=== PATIENT | female | born 1950 | race Two or more races ===

== ENCOUNTER → 2024-10-27 | Outpatient (CLI) | payer MEDICARE, BC, SELFPAY ==
--- NOTE | 2024-10-27 14:00 | XR_ITS ---
Examination: Breast ultrasound, unilateral, left Date and time of exam: October 27, 2024 1421 hours INDICATIONS: Mammogram August 22, 2024 8 mm oval mass 3:00 position left breast Technique: Real-time morin scale ultrasonographic imaging performed left breast including all 4 quadrants as well as nipple retroareolar and axillary region. Findings: No cystic or solid mass IMPRESSION: BI-RADS Category 1: Negative study
--- NOTE | 2024-10-27 14:30 | XR_ITS ---
Examination: Diagnostic digital mammography, unilateral, left Computer aided detection 3-D breast Tomosynthesis, unilateral Date and time of exam: October 27, 2024 1431 hours INDICATIONS: Mammogram August 22, 2024 8 mm oval mass 3:00 position left breast Technique: Nonmagnified MLO, CC views of the left breast have been obtained, reconstructed from 3-D Tomosynthesis images. R2 computer aided detection program utilized for evaluation of suspicious masses and/or abnormal calcifications. 3-D Tomosynthesis images obtained. Findings: Scattered areas of fibroglandular density 8mm oval mass does persist 3:00 position left breast Impression: BI-RADS category 3: Probably benign findings One additional 6 month left mammogram follow-up is needed to document stability of 8:00 oval mass 2:00 position left breast
== END | disposition home or self-care (01) ==
PROVIDERS: PCP Family Medicine; Referring Provider Family Medicine; Visit Provider Family Medicine
DX: R92.332 Mammographic heterogeneous density, left breast (principal); N63.24 Unspecified lump in the left breast, lower inner quadrant; N63.21 Unspecified lump in the left breast, upper outer quadrant
CPT/HCPCS: 76641; 77061; 77065; G0279

== ENCOUNTER → 2024-12-29 | Outpatient (CLI) | payer MEDICARE, BC, SELFPAY ==
[2024-12-29 09:02] LABS: Albumin, Serum 4.3 gm/dL (3.4-4.8); Anion Gap 3 (7-16); BUN/Creatinine Ratio 23 Ratio (12-20); Blood Urea Nitrogen 18 mg/dL (9-23); Calcium 9.9 mg/dL (8.3-10.6); Calcium (Corrected) 9.9 mg/dL (8.5-10.1); Carbon Dioxide 28.8 mMol/L (20.0-31.0); Chloride 108 mMol/L (98-107); Creatinine (Component) 0.8 mg/dL (0.6-1.3); Glucose 99 mg/dL (74-106); Osmolality,Calculated 281 (275-295); Phosphorous 3.4 mg/dL (2.4-5.1); Potassium 4.1 mMol/L (3.4-5.1); Sodium 140 mMol/L (136-145); eGFR > 60 See Note
== END | disposition home or self-care (01) ==
LOC: COPL 07:15
PROVIDERS: PCP Family Medicine; Visit Provider Family Medicine
DX: E03.9 Hypothyroidism, unspecified (principal); E78.5 Hyperlipidemia, unspecified; K59.00 Constipation, unspecified; L28.2 Other prurigo; Z11.59 Encounter for screening for other viral diseases
CPT/HCPCS: 36415; 80069

== ENCOUNTER → 2025-01-14 | Outpatient (CLI) | payer MEDICARE, BC, SELFPAY ==
--- NOTE | 2025-01-14 15:00 | XR_ITS ---
Examination: CT abdomen, without intravenous contrast. CT abdomen, with intravenous contrast. Sagittal and coronal 2-D reconstructions. Time of exam:January 14, 2025 1530 hours INDICATIONS: Right flank pain right upper abdomen lump noticed beginning 2 months ago below the 12th rib CTDI: vol (mGy) 11.8 DLP: (mGycm) 328 Technique: Multiple 3.0 mm axial noncontrast images of the abdomen have been obtained. Multiple 3.0 mm axial images post administration 60 cc Isovue-370 intravenous contrast have been obtained. Sagittal and coronal 3-D reconstructions have been obtained. Low dose protocols were performed. One or more of the following dose reduction techniques were used; automated exposure control, adjustment of the mA and/or KV according to patient size, use of iterative reconstruction technique. Findings: No focal liver or splenic lesions Absent gallbladder No extra hepatic biliary tract dilatation No pancreatic or adrenal mass Mild to moderate bilateral renal parenchymal scar formation Right extrarenal pelvis No renal or ureteral calculi, no hydronephrosis IMPRESSION: No renal or ureteral calculi, no hydronephrosis Recommend ultrasound follow-up of any palpable lump in the right abdomen
== END | disposition home or self-care (01) ==
LOC: CCTX 14:49
PROVIDERS: PCP Family Medicine; Referring Provider Family Medicine; Visit Provider Family Medicine
DX: R19.09 Other intra-abdominal and pelvic swelling, mass and lump (principal)
CPT/HCPCS: 74170; A4649; Q9967

== ENCOUNTER 2025-04-20 09:00 | Outpatient (RCR) | payer MEDICARE, OTHER, SELFPAY ==
--- NOTE | 2025-03-31 09:12 | PT.OIERPT ---
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 Pt still has pain (6/10) with activities. Pt has limitation with self care, cooking, cleaning, gripping, overhead motions, and performing recreational activities. Objective: Right Shoulder PROM Flexion: 100 deg Abduction: 90 deg External Rotation: 80 deg Internal Rotation: NT due to pain Right Shoulder AROM Flexion: neutral Abduction: 20 deg ER and IR: unable Right Shoulder MMTs: grossly 2-/5 Right Scapula MMTs: grossly 2-/5 Assessment: Pt demonstrate right shoulder mobility and strength deficits s/p surgery leading to difficulty with ADLs. Pt will benefit from physical therapy to increase ROM, strength, and work on stability Short Term and Yarn Mercerizer Operator Helper Goals 1) Increase right shoulder PROM all motions WFL in 12 wks to prevent frozen shoulder 2) Increase right shoulder AROM WFL in 12 wks to be able to perform overhead motions 3) Increase right shoulder MMTs grossly to 4-/5 in 12 wks to be able to perform recreational activities 4) Increase right scapula MMTs grossly to 3+/5 in 12 wks to be able to perform lifting activities 5) Indep with HEP Treatment Plan 1) Manual Therapy 2) Therapeutic Activities 3) Therapeutic Exercises 4) Modalities (ice, heat) Frequency and Duration: 2 x wk for 12 wks Certification Dates: 03/31/25 to 07/01/25 Procedure Charges OP PT Eval Mod Complex 30 minutes: Yes
--- NOTE | 2025-04-06 10:37 | PT.ODAYNRPT ---
PT Outpatient Daily Note OP Daily Note Outpatient Physical Therapy Treatment Date: 04/06/25 Visit Reasons: Right shoulder pain Subjective: Pt's shoulder feels better. Pt mentioned she's been having her shoulder out of the sling more at home. Objective: Please see flow chart for list of ther ex performed Assessment: patient tolerate all exercises. Pt demonstrate progressive AAROM and PROM with less pain reported. Post ice helped with pain and soreness Plan: Continue with PT Length of Time (minutes) of Treatment: 30 Minutes Procedure Charges Therapeutic Exercise 30 minutes: Yes
--- NOTE | 2025-04-08 10:44 | PT.ODAYNRPT ---
PT Outpatient Daily Note OP Daily Note Outpatient Physical Therapy Treatment Date: 04/08/25 Visit Reasons: Right shoulder pain Subjective: Pt reports R shoulder is sore and stiff. Objective: Please see flow sheet for ther ex list. Assessment: Intervention completed with rest break in between exercises de to poor endurance and minimal pain. Plan: Continue with poC. Length of Time (minutes) of Treatment: 30 Minutes COAT FELLER Service Modifier Method I: Divide the number of min of care provided by the COAT FELLER/REGISTERED PHLEBOTOMIST PART TIME by the total min of care provided then multiply by 100. If greater than 11 percent modifier is required. Method II: Divide the total time of care provided to patient by 10 (round to the nearest whole number) and add 1 min. to set the minimum time requirement. If treatment total was 60 min., then 10% of 6 min PT CQ modifier applied: CQ Modifier applied Procedure Charges Therapeutic Exercise 30 minutes: Yes
--- NOTE | 2025-04-13 14:20 | PT.ODAYNRPT ---
PT Outpatient Daily Note OP Daily Note Outpatient Physical Therapy Treatment Date: 04/13/25 Visit Reasons: Right shoulder pain Subjective: Pt reports R shoulder is doing ok, continues to wear sling as directed. Objective: Please see flow sheet for ther ex list. Assessment: Continued with light AAROM interventions, pt tolerated well. Plan: Continue with POC. Length of Time (minutes) of Treatment: 30 Minutes ART GLASS SETTER Service Modifier Method I: Divide the number of min of care provided by the ART GLASS SETTER/CLINIC CMA by the total min of care provided then multiply by 100. If greater than 11 percent modifier is required. Method II: Divide the total time of care provided to patient by 10 (round to the nearest whole number) and add 1 min. to set the minimum time requirement. If treatment total was 60 min., then 10% of 6 min PT CQ modifier applied: CQ Modifier applied Procedure Charges Therapeutic Exercise 30 minutes: Yes
--- NOTE | 2025-04-20 10:20 | PT.ODAYNRPT ---
PT Outpatient Daily Note OP Daily Note Outpatient Physical Therapy Treatment Date: 04/20/25 Visit Reasons: Right shoulder pain Subjective: Pt reports shoulder is doing ok, feels like she can move it a little better. Pt continues to use sling to sleep. Objective: Please see flow sheet for ther ex list. Assessment: Continued with AAROm interventions, minimal discomfort. Plan: Continue with pOC. Length of Time (minutes) of Treatment: 30 Minutes Procedure Charges Therapeutic Exercise 30 minutes: Yes
== END 2025-04-20 23:59 | disposition home or self-care (01) ==
LOC: CPTX 09:00
PROVIDERS: PCP Orthopaedic Surgery; Referring Provider Orthopaedic Surgery; Visit Provider Orthopaedic Surgery
DX: M25.511 Pain in right shoulder (principal); M19.011 Primary osteoarthritis, right shoulder; Z96.611 Presence of right artificial shoulder joint
CPT/HCPCS: 97110; 97162

== ENCOUNTER 2025-05-19 09:30 | Outpatient (RCR) | payer MEDICARE, OTHER, SELFPAY ==
--- NOTE | 2025-04-28 10:21 | PT.ODAYNRPT ---
PT Outpatient Daily Note OP Daily Note Outpatient Physical Therapy Treatment Date: 04/28/25 Visit Reasons: RT shoulder pain Subjective: Pt reports shoulder is doing ok, does not feel mobility is coming back like she would like. Objective: Please see flow sheet for ther ex list. Assessment: Pt demonstrates poor RTC firing during isometrics. Plan: Continue with pOC. Length of Time (minutes) of Treatment: 30 Minutes Procedure Charges Therapeutic Exercise 30 minutes: Yes
--- NOTE | 2025-05-05 09:43 | PT.ODAYNRPT ---
PT Outpatient Daily Note OP Daily Note Outpatient Physical Therapy Treatment Date: 05/05/25 Visit Reasons: RT shoulder pain Subjective: Pt c/o weak shoulder and frustrated she can not lift. Objective: Please see flow sheet for ther ex list. Assessment: Pt demonstrates poor RTC firing, poor AROM in all directions. Focus on restoring strength to maximize rehab potential and AROM. Plan: Continue with poC. Length of Time (minutes) of Treatment: 30 Minutes DISTANCE LEARNING ADMINISTRATOR Service Modifier Method I: Divide the number of min of care provided by the DISTANCE LEARNING ADMINISTRATOR/JAE by the total min of care provided then multiply by 100. If greater than 11 percent modifier is required. Method II: Divide the total time of care provided to patient by 10 (round to the nearest whole number) and add 1 min. to set the minimum time requirement. If treatment total was 60 min., then 10% of 6 min PT CQ modifier applied: CQ Modifier applied Procedure Charges Therapeutic Exercise 30 minutes: Yes
--- NOTE | 2025-05-07 10:05 | PT.ODAYNRPT ---
PT Outpatient Daily Note OP Daily Note Outpatient Physical Therapy Treatment Date: 05/07/25 Visit Reasons: RT shoulder pain Subjective: Pt reports compliance with HEP. Objective: Please see flow sheet for ther ex list. Assessment: Focus on restoring strength and ROm, progressing per post op protocol. Plan: Continue iwth pOC. Length of Time (minutes) of Treatment: 30 Minutes LOCK AND DAM REPAIRER Service Modifier Method I: Divide the number of min of care provided by the LOCK AND DAM REPAIRER/PEDIATRIC RADIOLOGIST by the total min of care provided then multiply by 100. If greater than 11 percent modifier is required. Method II: Divide the total time of care provided to patient by 10 (round to the nearest whole number) and add 1 min. to set the minimum time requirement. If treatment total was 60 min., then 10% of 6 min PT CQ modifier applied: CQ Modifier applied Procedure Charges Therapeutic Exercise 30 minutes: Yes
--- NOTE | 2025-05-14 10:23 | PT.ODAYNRPT ---
PT Outpatient Daily Note OP Daily Note Outpatient Physical Therapy Treatment Date: 05/14/25 Visit Reasons: RT shoulder pain Subjective: Pt reports R shoulder is weak and she is getting discouraged because at this time pt can not reach or lift arm. Objective: Please see flow sheet for ther ex list. Assessment: Pt demonstrates poor cuff firing and compensates with excessive upper trap recruitment and lateral trunk flexion to reach during exercises. Plan: Continue with pOC. Length of Time (minutes) of Treatment: 30 Minutes INFORMATION SYSTEMS PLANNER Service Modifier Method I: Divide the number of min of care provided by the INFORMATION SYSTEMS PLANNER/JAE by the total min of care provided then multiply by 100. If greater than 11 percent modifier is required. Method II: Divide the total time of care provided to patient by 10 (round to the nearest whole number) and add 1 min. to set the minimum time requirement. If treatment total was 60 min., then 10% of 6 min PT CQ modifier applied: CQ Modifier applied Procedure Charges Therapeutic Exercise 30 minutes: Yes
--- NOTE | 2025-05-19 10:06 | PTNOTE_ITS ---
PT Outpatient Daily Note OP Daily Note Outpatient Physical Therapy Treatment Date: 05/19/25 Visit Reasons: RT shoulder pain Subjective: Pt reports shoulder is slow to progress, continues to perform HEP. Objective: Please see flow sheet for ther ex list. Assessment: Continued focus on initiating strengthening, pt demonstrates less upper trap recruitment today during cone stack exercise. Plan: Continue with POC. Length of Time (minutes) of Treatment: 30 Minutes BACK UP MACHINE OPERATOR Service Modifier Method I: Divide the number of min of care provided by the BACK UP MACHINE OPERATOR/JAE by the total min of care provided then multiply by 100. If greater than 11 percent modifier is required. Method II: Divide the total time of care provided to patient by 10 (round to the nearest whole number) and add 1 min. to set the minimum time requirement. If t reatment total was 60 min., then 10% of 6 min PT CQ modifier applied: CQ Modifier applied Procedure Charges Therapeutic Exercise 30 minutes: Yes
== END 2025-05-21 23:59 | disposition home or self-care (01) ==
LOC: CPTX 09:30
PROVIDERS: PCP Orthopaedic Surgery; Referring Provider Orthopaedic Surgery; Visit Provider Orthopaedic Surgery
DX: M25.511 Pain in right shoulder (principal); Z96.611 Presence of right artificial shoulder joint; M19.011 Primary osteoarthritis, right shoulder
CPT/HCPCS: 97110

== ENCOUNTER 2025-06-17 09:00 | Outpatient (RCR) | payer MEDICARE, OTHER, SELFPAY ==
--- NOTE | 2025-05-26 10:17 | PT.ODAYNRPT ---
PT Outpatient Daily Note OP Daily Note Outpatient Physical Therapy Treatment Date: 05/26/25 Visit Reasons: right shoulder pain Subjective: Pt reports R shoulder is slow to progress. Objective: Please see flow sheer for ther ex list. Assessment: Pt able to perform active shoulder flexion in supine with some difficulty. Plan: Continue with poC> Length of Time (minutes) of Treatment: 30 Minutes COMMERCIAL CARPENTER Service Modifier Method I: Divide the number of min of care provided by the COMMERCIAL CARPENTER/JAE by the total min of care provided then multiply by 100. If greater than 11 percent modifier is required. Method II: Divide the total time of care provided to patient by 10 (round to the nearest whole number) and add 1 min. to set the minimum time requirement. If treatment total was 60 min., then 10% of 6 min PT CQ modifier applied: CQ Modifier applied Procedure Charges Therapeutic Exercise 30 minutes: Yes
--- NOTE | 2025-05-28 10:01 | PT.ODS1RPT ---
PT OP Progress/Discharge Note Date of Service: 05/28/25 Progress Note/DC Note Progress Note/Discharge Note: Progress Note Patient Information Visit Reasons: right shoulder pain Medical Diagnosis: M19.011; M25.511 Treatment Dx #1: Right Shoulder Mobility Deficits Treatment Dx #2: Right Shoulder Weakness Service Continue Service or Discharge: Continue Service Discharge Date: 05/28/25 Certification Date Certification Dates: 05/28/25 to 08/28/25 Status Subjective: Pt is getting frustrated due to minimal arm movement since the surgery. Pt's been using 2 # weight at home in attempt to do arm exercises. Pt still has limitation with lifting, chores, self care, cooking, cleaning, and performing recreational activities. Pt will follow up with surgeon next week. Objective: Right Shoulder PROM Flexion: 150 deg Abduction: 145 deg External Rotation: 90 deg Internal Rotation: 50 deg Right Shoulder AROM Flexion: 45 deg Abduction: 30 deg External Rotation: 10 deg Internal Rotation: 25 deg Right Shoulder MMTs: grossly 3-/5 Right Scapula MMTs: grossly 3-/5 HBB AROM: Thumb at waist line Assessment: Pt is slowly improving with right shoulder AROM and strength, however, not functional enough to perform ADLs independently. Pt has been given HEP and resistance band to work on rotator cuff strengthening to be able to increase AROM with less limitation. Pt has not met set goals and will continue to benefit from physical therapy; thank you for your referrals. Plan: Continue with PT/POC and add 6 sessions (2 x wk for 3 wks) Procedure Charges Therapeutic Exercise 30 minutes: Yes
--- NOTE | 2025-06-02 13:30 | PT.ODAYNRPT ---
PT Outpatient Daily Note OP Daily Note Outpatient Physical Therapy Treatment Date: 06/02/25 Visit Reasons: right shoulder pain Subjective: Pt reports R shoulder is doing ok,, mentioned that its getting easier to raise her arm when performing HEP while laying on her back. Objective: Please see flow sheet for ther ex list. Assessment: Pt demonstrates improved technique with lifting L UE overhead in supine, avoiding elbow flexion. Plan: Continue withpoC. Length of Time (minutes) of Treatment: 30 Minutes TURRET LATHE MACHINIST Service Modifier Method I: Divide the number of min of care provided by the TURRET LATHE MACHINIST/PLASTIC PRODUCTION MACHINE SETTER by the total min of care provided then multiply by 100. If greater than 11 percent modifier is required. Method II: Divide the total time of care provided to patient by 10 (round to the nearest whole number) and add 1 min. to set the minimum time requirement. If treatment total was 60 min., then 10% of 6 min PT CQ modifier applied: CQ Modifier applied Procedure Charges Therapeutic Exercise 30 minutes: Yes
--- NOTE | 2025-06-04 09:12 | PT.ODAYNRPT ---
PT Outpatient Daily Note OP Daily Note Outpatient Physical Therapy Treatment Date: 06/04/25 Visit Reasons: right shoulder pain Subjective: Pt shared that she has more peace of mind, went to see surgeon and he said pt is progressing how she should be. Surgeon mentioned that it is a long healing process and will take about a year. Objective: Please see flow sheet for ther ex list. Assessment: Continue focus on shoulder AROM and AROM and work on deltoid recruitment. Plan: Continue with POC. Length of Time (minutes) of Treatment: 30 Minutes CODING FILE CLERK Service Modifier Method I: Divide the number of min of care provided by the CODING FILE CLERK/JAE by the total min of care provided then multiply by 100. If greater than 11 percent modifier is required. Method II: Divide the total time of care provided to patient by 10 (round to the nearest whole number) and add 1 min. to set the minimum time requirement. If treatment total was 60 min., then 10% of 6 min PT CQ modifier applied: CQ Modifier applied Procedure Charges Therapeutic Exercise 30 minutes: Yes
--- NOTE | 2025-06-17 10:01 | PT.ODAYNRPT ---
PT Outpatient Daily Note OP Daily Note Outpatient Physical Therapy Treatment Date: 06/17/25 Visit Reasons: right shoulder pain Subjective: Pt's shoulder feels much better. Pt notice improved strength lately and continues band HEP at home. Objective: Please see flow chart for list of ther ex performed Assessment: use 1# weight with supine flexion and was able to perform with good form. Pt still has difficulty with sidelying ER and abduction due to scapula weakness; improved AROM with scapula setting from therapist and manually repositioning scapula to decrease winging Plan: Continue with PT and work on scapula strengthening exercises Length of Time (minutes) of Treatment: 30 Minutes Procedure Charges Therapeutic Exercise 30 minutes: Yes
== END 2025-06-21 23:59 | disposition home or self-care (01) ==
LOC: CPTX 09:00
PROVIDERS: PCP Orthopaedic Surgery; Referring Provider Orthopaedic Surgery; Visit Provider Orthopaedic Surgery
DX: M25.511 Pain in right shoulder (principal); R53.1 Weakness; M19.011 Primary osteoarthritis, right shoulder; Z96.611 Presence of right artificial shoulder joint
CPT/HCPCS: 97110

== ENCOUNTER 2025-07-16 10:00 | Outpatient (RCR) | payer MEDICARE, OTHER, SELFPAY ==
--- NOTE | 2025-06-24 12:50 | PT.ODAYNRPT ---
PT Outpatient Daily Note OP Daily Note Outpatient Physical Therapy Treatment Date: 06/24/25 Visit Reasons: Rt shoulder pain Subjective: Pt's shoulder still weak but able to pick her arm higher up to shoulder height. Objective: Please see flow chart for list of ther ex performed Assessment: frequent cues to set scapula with sidelying ER and abudtion to improve form and recruit correct muscle with arm movement. Pt is progressing with shoulder flexion and abduction AROM Plan: Continue with PT Length of Time (minutes) of Treatment: 30 Minutes Procedure Charges Therapeutic Exercise 30 minutes: Yes
--- NOTE | 2025-06-26 11:17 | PT.ODAYNRPT ---
PT Outpatient Daily Note <ELIGIO Priest - Last Filed: 06/26/25 11:26> OP Daily Note Outpatient Physical Therapy Treatment Date: 06/26/25 Visit Reasons: Rt shoulder pain Subjective: Pt states her Rt shoulder is feeling better and did not experience an increase pain post her last PT visit this week. Objective: See F/S for therx Assessment: Pt demo'd improvement with therex, required less cues to correct form with sidelying shoulder abduction. Unable to continue w/ sidelying ER due to pain in the Rt shoulder; tolerated resisted ER/IR walkouts well with no increase in pain to Rt shoulder. Continuing to improve AROM w/ Rt shoulder flexion and abduction. Plan: Continue with POC Length of Time (minutes) of Treatment: 30 Minutes <Scotty Swanson PT - Last Filed: 06/26/25 12:59> OP Daily Note Assessment: Pt demo'd improvement with therex, required less cues to correct form with sidelying shoulder abduction. Unable to continue sidelying ER exercise due to pain; exercise modify to resisted ER/IR walkouts with no increase in pain. Continuing to improve AROM w/ Rt shoulder flexion and abduction. Procedure Charges <ELIGIO Priest - Last Filed: 06/26/25 11:26> Therapeutic Exercise 30 minutes: Yes
--- NOTE | 2025-06-30 09:43 | PT.ODAYNRPT ---
PT Outpatient Daily Note OP Daily Note Outpatient Physical Therapy Treatment Date: 06/30/25 Visit Reasons: Rt shoulder pain Subjective: Pt's shoulder is feeling much better and notice lifting arm is getting easier. Objective: Please see flow chart for list of ther ex performed Assessment: improved shoulder flexion and abduction in gravity position with less engagement of the upper trape. Pt continue to improve with sidelying shoulder ER with decrease compensation from the back to help initiate movement Plan: Continue with PT Length of Time (minutes) of Treatment: 30 Minutes Procedure Charges Therapeutic Exercise 30 minutes: Yes
--- NOTE | 2025-07-02 10:13 | PT.ODAYNRPT ---
PT Outpatient Daily Note OP Daily Note Outpatient Physical Therapy Treatment Date: 07/02/25 Visit Reasons: Rt shoulder pain Subjective: Pt states she is doing well and reports improvement with Rt shoulder ROM. Objective: See F/S for therex Assessment: Demonstrated improvement with Rt shoulder ROM and control in supine w/ minimal discomfort. Sidelying ER exercise modified to removal of 1lb weight due to pain. Plan: Continue with POC Length of Time (minutes) of Treatment: 30 Minutes Procedure Charges Therapeutic Exercise 30 minutes: Yes
--- NOTE | 2025-07-08 10:33 | PT.ODAYNRPT ---
PT Outpatient Daily Note OP Daily Note Outpatient Physical Therapy Treatment Date: 07/08/25 Visit Reasons: Rt shoulder pain Subjective: Pt reports R shoulder is doing better and is compliant with HEP. Objective: Please see flow sheet for ther ex list. Assessment: Verbal and tactile cues for pt to avoid upper trap recruitment with shoulder flexion exercise. Plan: Continue with poC. Length of Time (minutes) of Treatment: 30 Minutes YARD WAREHOUSE WORKER Service Modifier Method I: Divide the number of min of care provided by the YARD WAREHOUSE WORKER/JAE by the total min of care provided then multiply by 100. If greater than 11 percent modifier is required. Method II: Divide the total time of care provided to patient by 10 (round to the nearest whole number) and add 1 min. to set the minimum time requirement. If treatment total was 60 min., then 10% of 6 min PT CQ modifier applied: CQ Modifier applied Procedure Charges Therapeutic Exercise 30 minutes: Yes
--- NOTE | 2025-07-10 15:33 | PTNOTE_ITS ---
PT Outpatient Daily Note OP Daily Note Outpatient Physical Therapy Treatment Date: 07/10/25 Visit Reasons: Rt shoulder pain Subjective: Pt reports R shoulder is doing better, she is content to share that she can raise her arm up to apply deodorant. Objective: Please see flow sheet for ther ex list. Assessment: ROm of R shoulder continues to improve. Plan: Progress per post op protocol. Length of Time (minutes) of Treatment: 30 Minutes BRIDGE CRANE OPERATOR Service Modifier Method I: Divide the number of min of care provided by the BRIDGE CRANE OPERATOR/JAE by the total min of care provided then multiply by 100. If greater than 11 percent modifier is required. Method II: Divide the total time of care provided to patient by 10 (round to the nearest whole number) and add 1 min. to set the minimum time requirement. If treatment total was 60 min., then 10% of 6 min PT CQ modifier applied: CQ Modifier applied Procedure Charges Therapeutic Exercise 30 minutes: Yes
--- NOTE | 2025-07-14 10:36 | PT.ODAYNRPT ---
PT Outpatient Daily Note OP Daily Note Outpatient Physical Therapy Treatment Date: 07/14/25 Visit Reasons: Rt shoulder pain Subjective: Pt's shoulder feels stronger. Taking clothes on and off is getting easier. Objective: Please see flow chart for list of ther ex performed Assessment: continues to progress with shoulder abduction in gravity eliminated position. Pt also exhibit decrease scapula winging in static and dynamic shoulder position with exercises Plan: Continue with PT Length of Time (minutes) of Treatment: 30 Minutes Procedure Charges Therapeutic Exercise 30 minutes: Yes
--- NOTE | 2025-07-16 11:19 | PTNOTE_ITS ---
PT Outpatient Daily Note OP Daily Note Outpatient Physical Therapy Treatment Date: 07/16/25 Visit Reasons: Rt shoulder pain Subjective: Pt reports R shoulder is really sore, went for a walk this morning. When pt was on her morning walk she had a 2lb weight on R hadn and was moving and swinging her arm in all different angles. Objective: Please see flow sheet for ther ex list. Assessment: Pt demonstrates poor activity tolerance due to pain and soreness in the shoulder. Regressed interventions today to accommodate symptoms. Recommended pt to modify time on using 2lb weight on R UE and to decrease reps when exercising especially being her first time using dumbell weight for her morning routine walk. Plan: Assess response to treatment. Length of Time (minutes) of Treatment: 30 Minutes DIRECTOR CLIENT Service Modifier Method I: Divide the number of min of care provided by the DIRECTOR CLIENT/INSPECTOR BALANCE WHEEL MOTION by the total min of care provided then multiply by 100. If greater than 11 percent modifier is required. Method II: Divide the total time of care provided to patient by 10 (round to the nearest whole number) and add 1 min. to set the minimum time requirement. If treatment total was 60 min., then 10% of 6 min PT CQ modifier applied: CQ Modifier applied Procedure Charges Therapeutic Exercise 30 minutes: Yes
== END 2025-07-21 23:59 | disposition home or self-care (01) ==
LOC: CPTX 10:00
PROVIDERS: PCP Orthopaedic Surgery; Referring Provider Orthopaedic Surgery; Visit Provider Orthopaedic Surgery
DX: M25.511 Pain in right shoulder (principal); M19.011 Primary osteoarthritis, right shoulder; Z98.890 Other specified postprocedural states
CPT/HCPCS: 97110

== ENCOUNTER 2025-08-18 10:00 | Outpatient (RCR) | payer MEDICARE, OTHER, SELFPAY ==
--- NOTE | 2025-07-23 10:00 | PT.ODAYNRPT ---
PT Outpatient Daily Note OP Daily Note Outpatient Physical Therapy Treatment Date: 07/23/25 Visit Reasons: RIGHT SHOULDER PAIN Subjective: Pt's shoulder feels much better. Pt wants to continue physical therapy and has a follow up appt in the middle of july. Objective: Please see flow chart for list of ther ex performed Assessment: improved shoulder control through the whole ROM with supine PNF and punch using weight Plan: Continue with PT Length of Time (minutes) of Treatment: 30 Minutes Procedure Charges Therapeutic Exercise 30 minutes: Yes
--- NOTE | 2025-07-28 10:20 | PT.ODS1RPT ---
PT OP Progress/Discharge Note Date of Service: 07/28/25 Progress Note/DC Note Progress Note/Discharge Note: Progress Note Patient Information Visit Reasons: RIGHT SHOULDER PAIN Medical Diagnosis: M19.011; M25.511 Treatment Dx #1: Right Shoulder Weakness Treatment Dx #2: Right Shoulder Mobility Deficits Service Continue Service or Discharge: Continue Service Certification Date Certification Dates: 07/28/25 to 10/28/25 Status Subjective: Pt mentioned her shoulder has been hurting more lately and may relate to change in weather. Pt has been able to drive, cook, clean, perform chores, and ADLs with less limitation. Pt will like to continue with physical therapy. Objective: Right Shoulder AROM Flexion: 110 deg Abduction: 95 deg External Rotation: 80 deg Internal Rotation: 60 deg Right Shoulder MMTs: grossly 3+/5 Right Scapula MMTs: grossly 3+/5 HBB AROM: thumb at T12 Assessment: Pt continues to improve with right shoulder AROM and strength allowing her to cook, clean, perform chores, and ADLs with less limitation. Pt has met set goals and will continue to benefit from physical therapy to increase ROM, strength, and work on stability; thank you for your referrals. Plan: Continue with PT/POC and add 8 sessions (2 x wk for 4 wks) Procedure Charges Therapeutic Exercise 30 minutes: Yes
--- NOTE | 2025-08-11 10:58 | PT.ODAYNRPT ---
PT Outpatient Daily Note OP Daily Note Outpatient Physical Therapy Treatment Date: 08/11/25 Visit Reasons: RIGHT SHOULDER PAIN Subjective: Pt's shoulder feels much better. Pt recently seen surgeon and wants her to continue PT. Pt was a little discourage after the appt; surgeon mention she will never be able to completely reach behind her back. Objective: Right HBB AROM: thumb at L4 Assessment: Added body blade exercises with good form noted today. Pt continues to have difficulty with sidelying shoulder ER with 1# weight due to weakness Plan: Continue with PT Length of Time (minutes) of Treatment: 30 Minutes Procedure Charges Therapeutic Exercise 30 minutes: Yes
--- NOTE | 2025-08-13 11:41 | PT.ODAYNRPT ---
PT Outpatient Daily Note OP Daily Note Outpatient Physical Therapy Treatment Date: 08/13/25 Visit Reasons: RIGHT SHOULDER PAIN Subjective: Pt reports R shoulder is progressing has been working on reaching behind the back. Objective: Please see flow sheet for ther ex list. Assessment: Pt demonstrates elbow extension with B ER exercise, verbal cues to correct and used a towel under R arm to avoid shoulder abduction. Plan: Continue with pOC. Length of Time (minutes) of Treatment: 30 Minutes SENIOR INSTRUMENTATION ENGINEER Service Modifier Method I: Divide the number of min of care provided by the SENIOR INSTRUMENTATION ENGINEER/PUBLISHING SPECIALIST by the total min of care provided then multiply by 100. If greater than 11 percent modifier is required. Method II: Divide the total time of care provided to patient by 10 (round to the nearest whole number) and add 1 min. to set the minimum time requirement. If treatment total was 60 min., then 10% of 6 min PT CQ modifier applied: CQ Modifier applied Procedure Charges Therapeutic Exercise 30 minutes: Yes
--- NOTE | 2025-08-18 10:26 | PT.ODAYNRPT ---
PT Outpatient Daily Note OP Daily Note Outpatient Physical Therapy Treatment Date: 08/18/25 Visit Reasons: RIGHT SHOULDER PAIN Subjective: Pt notice it's getting easier reaching behind her back. Pt can now perform self care and hang her purse on the rack with less limitation. Objective: Please see flow chart for list of ther ex performed Assessment: improving with shoulder HBB ROM. Pt was able to maintain HBB for a stretch. Pt advised to not force HBB stretch at home and work on a light stretch as HEP. Pt gave verbal understanding Plan: Continue with PT Length of Time (minutes) of Treatment: 30 Minutes Procedure Charges Therapeutic Exercise 30 minutes: Yes
== END 2025-08-21 23:59 | disposition home or self-care (01) ==
LOC: CPTX 10:00
PROVIDERS: PCP Orthopaedic Surgery; Referring Provider Orthopaedic Surgery; Visit Provider Orthopaedic Surgery
DX: M25.511 Pain in right shoulder (principal); R53.1 Weakness; M19.011 Primary osteoarthritis, right shoulder
CPT/HCPCS: 97110

== ENCOUNTER → 2025-08-26 | Outpatient (CLI) | payer MEDICARE, OTHER, SELFPAY ==
--- NOTE | 2025-08-26 11:15 | XR_ITS ---
Examination: Screening digital mammography, bilateral Computer aided detection 3-D breast Tomosynthesis, bilateral Date and time of exam: 08/26/2025, 10:07 a.m. Comparisons: June 2023 through October 2024 Indications: Screening Technique: Nonmagnified MLO, CC views of the breasts to been obtained, reconstructed from 3-D Tomosynthesis images. R2 computer aided detection program utilized for evaluation of suspicious masses and/or abnormal calcifications. 3-D Tomosynthesis images obtained. Technologist: Findings: There are scattered areas of fibroglandular density. No evidence of abnormal masses or suspicious calcifications. Impression: BI-RADS category 1: Negative findings (within normal) Recommend 1 year follow-up mammogram
== END | disposition home or self-care (01) ==
LOC: CDIM 09:58
PROVIDERS: Referring Provider Family Medicine; Visit Provider Family Medicine
DX: Z12.31 Encounter for screening mammogram for malignant neoplasm of breast (principal); R92.313 Mammographic fatty tissue density, bilateral breasts
CPT/HCPCS: 77063; 77067

== ENCOUNTER 2025-09-10 11:30 | Outpatient (RCR) | payer MEDICARE, OTHER, SELFPAY ==
--- NOTE | 2025-08-25 11:59 | PT.ODAYNRPT ---
PT Outpatient Daily Note OP Daily Note Outpatient Physical Therapy Treatment Date: 08/25/25 Visit Reasons: right shoulder pain Subjective: Pt's shoulder feels stronger. Pt notice she can hang up her purse on the rack with less limitation. Objective: Please see flow chart for list of ther ex performed Assessment: progressing with shoulder AROM with less recruitment from upper trape with resistance exercises in standing Plan: Continue with PT Length of Time (minutes) of Treatment: 30 Minutes Procedure Charges Therapeutic Exercise 30 minutes: Yes
--- NOTE | 2025-08-27 12:03 | PT.ODAYNRPT ---
PT Outpatient Daily Note OP Daily Note Outpatient Physical Therapy Treatment Date: 08/27/25 Visit Reasons: right shoulder pain Subjective: Pt's shoulder feels much better. Pt was pretty fatigue and sore after last session. Objective: Please see flow chart for list of ther ex performed Assessment: progressing well with shoulder flexion and abduction AROM with less upper trape recruitment. Added 1# weight to sitting flexion and abduction with correction of form and keeping elbow straight through the range Plan: Continue with PT Length of Time (minutes) of Treatment: 30 Minutes Procedure Charges Therapeutic Exercise 30 minutes: Yes
--- NOTE | 2025-09-08 11:49 | PT.ODAYNRPT ---
PT Outpatient Daily Note OP Daily Note Outpatient Physical Therapy Treatment Date: 09/08/25 Visit Reasons: right shoulder pain Subjective: Pt's notice shoulder abduction is still difficult due to weakness. Pt has been practicing the y's and t's at home with therguillermina Objective: HBB AROM: Thumb at T11 Assessment: Pt is slowly progressing with HBB AROM with less pain reported. Pt exhbit improve scapula stability and setting with overhead arm exercises with decrease upper trape engagement in sitting position Plan: Conitnue with PT Length of Time (minutes) of Treatment: 30 Minutes Procedure Charges Therapeutic Exercise 30 minutes: Yes
--- NOTE | 2025-09-10 11:52 | PT.ODAYNRPT ---
PT Outpatient Daily Note OP Daily Note Outpatient Physical Therapy Treatment Date: 09/10/25 Visit Reasons: right shoulder pain Subjective: Pt notice slight improvement with HBB AROM and able to perform overhead motions with less fatigue. Objective: Please see flow chart for list of ther ex performed Assessment: less cue given with exercises to decrease upper trape recruitment. Pt continues to show improved scapula stability with shoulder flexion and abduction ROM Plan: Continue with PT Length of Time (minutes) of Treatment: 30 Minutes Procedure Charges Therapeutic Exercise 30 minutes: Yes
== END 2025-09-20 23:59 | disposition home or self-care (01) ==
LOC: CPTX 11:30
PROVIDERS: PCP Orthopaedic Surgery; Referring Provider Orthopaedic Surgery; Visit Provider Orthopaedic Surgery
DX: Z47.1 Aftercare following joint replacement surgery (principal); Z96.611 Presence of right artificial shoulder joint; M25.511 Pain in right shoulder
CPT/HCPCS: 97110

== ENCOUNTER 2025-09-30 11:30 | Outpatient (RCR) | payer MEDICARE, OTHER, SELFPAY ==
--- NOTE | 2025-09-22 12:02 | PT.ODAYNRPT ---
PT Outpatient Daily Note OP Daily Note Outpatient Physical Therapy Treatment Date: 09/22/25 Visit Reasons: RIGHT SHOULDER PAIN Subjective: Pt's shoulder is better. Pt is happy recently bought a new car. Objective: Please see flow chart for list of ther ex performed Assessment: progressing with shoulder flexion, scaption, PNF D1/D2 pattern in standing with less cues to correct form. Pt had difficulty maintaining body blade IR/ER due to fatigue. Plan: Continue with PT Length of Time (minutes) of Treatment: 30 Minutes Procedure Charges Therapeutic Exercise 30 minutes: Yes
--- NOTE | 2025-09-24 12:58 | PT.ODAYNRPT ---
PT Outpatient Daily Note OP Daily Note Outpatient Physical Therapy Treatment Date: 09/24/25 Visit Reasons: RIGHT SHOULDER PAIN Subjective: Pt's shoulder is better but wants to continue to work on reaching behind the back. Objective: Please see flow chart for list of ther ex performed Assessment: continue to have difficulty with reaching behind the back due to ROM limitation Plan: Continue with PT Length of Time (minutes) of Treatment: 30 Minutes Procedure Charges Therapeutic Exercise 30 minutes: Yes
--- NOTE | 2025-09-30 12:55 | PTNOTE_ITS ---
PT Outpatient Daily Note OP Daily Note Outpatient Physical Therapy Treatment Date: 09/30/25 Visit Reasons: RIGHT SHOULDER PAIN Subjective: Pt's shoulder feels great. Pt wants to continue to work on reaching behind the back. Pt community director a follow up appt with surgeon next week and will determine if further PT is necessary Objective: Right Shoulder AROM Flexion: 155 deg Abduction: 150 deg External Rotation: 90 deg Internal Rotation: 60 deg Right Shoulder MMTs: grossly 4-/5 RIght Scapula MMTs: grossly 3+/5 HBB AROM: thumb at T9 Assessment: Pt continues to progress with shoulder AROM and strength allowing her to resume ADLs. Pt advsied to consult with MD to see if further physical therapy is needed. Pt will contact PT office after her follow up appt with updates. Plan: Continue with PT per MD's discretion Procedure Charges Therapeutic Exercise 30 minutes: Yes
--- NOTE | 2025-10-07 14:57 | PT.ODS1RPT ---
PT OP Progress/Discharge Note Date of Service: 10/07/25 Progress Note/DC Note Progress Note/Discharge Note: DC Note Patient Information Visit Reasons: RIGHT SHOULDER PAIN Service Discharge Date: 10/07/25 Status Assessment: Pt called 10/07/25 to cx all pending appt per MD's order. Please see 09/30/25 SOAP note for most current functional status and ROM. Pt has met most goals set in therapy; thank you for your referrals.
== END 2025-10-21 23:59 | disposition home or self-care (01) ==
LOC: CPTX 11:30
PROVIDERS: PCP Orthopaedic Surgery; Referring Provider Orthopaedic Surgery; Visit Provider Orthopaedic Surgery
DX: M25.511 Pain in right shoulder (principal); M19.011 Primary osteoarthritis, right shoulder; Z98.890 Other specified postprocedural states
CPT/HCPCS: 97110